=== PATIENT | female | born 1995 | race African-American/Black ===

== ENCOUNTER 2019-11-01 15:36 | Emergency (ER) | payer MEDICAID ==
[~2019-11-01] VITALS: Ht 167.6 cm; Wt 75.0 kg
[2019-11-01 15:41] VITALS: BP 136/92
== END 2019-11-01 16:17 | disposition left against medical advice (07) ==
LOC: ER 15:36
DX: M54.2 Cervicalgia (principal); Z53.21 Procedure and treatment not carried out due to patient leaving prior to being seen by health care provider